=== PATIENT | male | born 1965 | race African-American/Black ===

== ENCOUNTER 2019-11-19 16:59 | Emergency (ER) | payer OTHER ==
[2019-11-19 18:23] LABS: Hemoglobin 7.6 g/dL (14.0-18.0); Mean Corpuscular HGB CONC 37.1 g/dL (32.0-36.0); Mean Corpuscular Hemoglobin 35.8 pg (27.0-31.0); Mean Corpuscular Volume 96.7 fL (78.0-98.0); Mean Platelet Volume 11.4 fL (7.4-10.4); Platelet Count 35 thou/uL (130-400); Red Blood Cell (RBC) Count 2.11 mill/uL (4.70-6.10)
[2019-11-19 19:25] LABS: Reflex for Review?? YES
[2019-11-19 19:30] LABS: Anisocytosis SLIGHT = 6-15 cells (100X) (0-5/hpf); Elliptocytes SLIGHT = 2-5 cells (100X) (0-1/hpf); Eosinophils 1 % (0-10); Hypochromia SLIGHT = 6-15 cells (100X) (0-5/hpf); Lymphocytes 64 % (21-51); MDiff Complete? YES; Metamyelocyte 1 % (0-0); Microcytosis SLIGHT = 6-15 cells (100X) (0-5/hpf); Monocytes 18 % (0-10); Neutrophil 14 % (42-75); Nucleated RBC 3 % (0); Platelet Morphology Comment Appears Decreased; Polychromasia SLIGHT = 2-3 cells (100X) (0-2/hpf); Reactive Lymphocytes 2 % (0-10); Schistocytes SLIGHT = 2-5 cells (100X) (0-1/hpf); Tear Drops SLIGHT = 2-5 cells (100X) (0-1/hpf)
--- NOTE | 2019-11-19 20:11 | RAD ---
ONE VIEW CHEST: History: Chest pain. Patient has history of leukemia and anemia. Comparison: None. FINDINGS: Cardiac silhouette and pulmonary vasculature are within normal limits. The lungs are clear. Osseous s tructures have a normal appearance. IMPRESSION: No acute cardiopulmonary process. POS: SONI
[2019-11-19 20:12] LABS: ALT (SGPT) 31 U/L (8-55); AST (SGOT) 30 U/L (5-34); Albumin 4.3 g/dL (3.5-5.0); Alkaline Phosphatase 111 U/L (40-110); Anion Gap 12 mmol/L (10-20); BUN (Urea Nitrogen) 16 mg/dL (8.4-25.7); Bilirubin, Total 0.6 mg/dL (0.2-1.2); CK (CPK) 457 U/L (30-200); Calc. Creatinine Clearance 0 mL/min (70-130); Calcium 9.3 mg/dL (7.8-10.44); Carbon Dioxide 23 mmol/L (22-29); Chloride 110 mmol/L (98-107); Estimated GFR-MDRD Greater than 90; Globulin 2.2 g/dL (2.4-3.5); Glucose 100 mg/dL (70-105); Potassium 3.9 mmol/L (3.5-5.1); Protein, Total 6.5 g/dL (6.0-8.3); Sodium 141 mmol/L (136-145)
[2019-11-19 23:05] LABS: Troponin I Less than 0.010 ng/mL (< 0.028)
== END 2019-11-20 02:29 ==
LOC: ERS 16:59
DX: D64.9 Anemia, unspecified (principal); C95.90 Leukemia, unspecified not having achieved remission; R07.9 Chest pain, unspecified; I10 Essential (primary) hypertension; F32.9 Major depressive disorder, single episode, unspecified; Z87.891 Personal history of nicotine dependence; Z79.899 Other long term (current) drug therapy
CPT/HCPCS: 36415; 71045; 80053; 82550; 83880; 84484; 85025; 85060; 86850; 86900; 86901; 93005

== ENCOUNTER 2019-11-28 16:40 | Emergency (ER) | payer OTHER ==
--- NOTE | 2019-11-28 17:23 | RAD ---
XR Chest 1 View Portable HISTORY: Dyspnea COMPARISON: 11/19/2019 FINDINGS: The heart size is normal. The lungs are well expanded without focal areas of consolidation, pneumothorax or pleural effusions. IMPRESSION: No radiographic evidence of acute cardiopulmonary process.
[2019-11-28 17:55] LABS: Hemoglobin 7.1 g/dL (14.0-18.0); Mean Corpuscular HGB CONC 37.5 g/dL (32.0-36.0); Mean Corpuscular Hemoglobin 36.4 pg (27.0-31.0); Mean Platelet Volume 12.4 fL (7.4-10.4); Platelet Count 32 thou/uL (130-400); RBC Distribution Width 20.8 % (11.5-14.5); Red Blood Cell (RBC) Count 1.94 mill/uL (4.70-6.10); White Blood Cell (WBC) Count 0.6 thou/uL (4.8-10.8)
[2019-11-28 18:02] LABS: ALT (SGPT) 32 U/L (8-55); AST (SGOT) 34 U/L (5-34); Albumin 4.3 g/dL (3.5-5.0); Alkaline Phosphatase 109 U/L (40-110); Anion Gap 12 mmol/L (10-20); BUN (Urea Nitrogen) 19 mg/dL (8.4-25.7); Bilirubin, Total 0.5 mg/dL (0.2-1.2); Calc. Creatinine Clearance 0 mL/min (70-130); Calcium 8.9 mg/dL (7.8-10.44); Carbon Dioxide 21 mmol/L (22-29); Chloride 112 mmol/L (98-107); Estimated GFR-MDRD 77; Globulin 2.3 g/dL (2.4-3.5); Glucose 89 mg/dL (70-105); Potassium 4.3 mmol/L (3.5-5.1); Protein, Total 6.6 g/dL (6.0-8.3); Sodium 141 mmol/L (136-145)
[2019-11-28 18:37] LABS: Anisocytosis MODERATE=16-30 cells (100X) (0-5/hpf); Band 2 % (5-11); Large Platelets SLIGHT; Lymphocytes 80 % (21-51); MDiff Complete? YES; Monocytes 2 % (0-10); Neutrophil 6 % (42-75); Platelet Morphology Comment Appears Decreased; Polychromasia MODERATE = 3-4 cells (100X) (0-2/hpf); Reactive Lymphocytes 10 % (0-10)
== END 2019-11-28 21:00 ==
LOC: ERS 16:40
DX: D64.9 Anemia, unspecified (principal); I10 Essential (primary) hypertension; F32.9 Major depressive disorder, single episode, unspecified; Z87.891 Personal history of nicotine dependence; Z79.899 Other long term (current) drug therapy
CPT/HCPCS: 36415; 71045; 80053; 84484; 85025; 86850; 86900; 86901; 93005

== ENCOUNTER 2019-12-07 15:23 | Inpatient (IN) | payer OTHER ==
[2019-12-07] MEDS ORDERED: Cefepime 2 GM VIAL ONE (16:09)
--- NOTE | 2019-12-07 16:23 | RAD ---
Portable chest: HISTORY: Fever and tachycardia. COMPARISON: 11/28/2019 FINDINGS: Lung grijalva are clear. Heart and mediastinum appear unremarkable. Vascularity is normal. Visualized osseous structures unremarkable. IMPRESSION: No acute finding
[2019-12-07 16:34] LABS: Hemoglobin 6.1 g/dL (14.0-18.0); Mean Corpuscular HGB CONC 36.5 g/dL (32.0-36.0); Mean Corpuscular Hemoglobin 35.9 pg (27.0-31.0); Mean Corpuscular Volume 98.6 fL (78.0-98.0); Mean Platelet Volume 13.3 fL (7.4-10.4); Platelet Count 21 thou/uL (130-400); RBC Distribution Width 20.9 % (11.5-14.5); White Blood Cell (WBC) Count 0.5 thou/uL (4.8-10.8)
[2019-12-07] MEDS ORDERED: Vancomycin 1.5 GRAM/300 ML BAG 1.5 GM in Premix Bag 1 BAG IVPB SCH (16:45)
[2019-12-07 16:53] LABS: ALT (SGPT) 29 U/L (8-55); AST (SGOT) 25 U/L (5-34); Albumin 4.1 g/dL (3.5-5.0); Alkaline Phosphatase 108 U/L (40-110); Anion Gap 12 mmol/L (10-20); BUN (Urea Nitrogen) 16 mg/dL (8.4-25.7); Bilirubin, Total 0.6 mg/dL (0.2-1.2); Calc. Creatinine Clearance 0 mL/min (70-130); Calcium 8.6 mg/dL (7.8-10.44); Carbon Dioxide 22 mmol/L (22-29); Chloride 105 mmol/L (98-107); Estimated GFR-MDRD 79; Globulin 2.1 g/dL (2.4-3.5); Glucose 100 mg/dL (70-105); Potassium 3.9 mmol/L (3.5-5.1); Protein, Total 6.2 g/dL (6.0-8.3); Sodium 135 mmol/L (136-145)
[2019-12-07] MEDS ORDERED: Acetaminophen 500 MG TAB ONE (17:12)
[2019-12-07 17:38] LABS: Bilirubin Negative (Negative); Blood, Urine Negative (Negative); Clarity Clear (Clear); Glucose, Urine (Dipstick) Normal (Negative); Leukocyte Negative Leu/uL (Negative); Nitrite Negative (Negative); Protein, Urine (Dipstick) Negative (Neg-Trace)
[2019-12-07] MEDS ORDERED: Vancomycin HCl 1 GM in Premix Bag 1 BAG IVPB SCH (21:00)
[2019-12-07] MEDS ORDERED: Famotidine/PF 20 mg/2ml Vial SLOW IVP SCH (22:00)
--- NOTE | 2019-12-07 23:39 | HP ---
CHIEF COMPLAINT: Fever. HISTORY OF PRESENT ILLNESS: Mr. Artis is a 54-year-old male with past medical history of leukemia, on chemotherapy p.o., presents to the emergency room for evaluation of fever, chills, started earlier today. The patient was diagnosed with leukemia 1 year ago. The patient reports having regular chemotherapy treatment with oncology at [facility], stated he saw them yesterday and they recommended that he receive transfusion soon. The patient denies shortness of breath, but he has been having cough. The patient denies being on blood thinners. Workup in the emergency room, the patient was anemic with a hemoglobin of 6.1, MCV is 98, thrombocytopenic with a platelet count 21, leukopenic and neutropenic with a total white count of 0.5. Initial workup including chest x-ray, no acute finding, at the time of this dictation, no obvious source of infection. The patient had septic workup done in the ED. Started on IV antibiotics. The patient is being admitted to the hospital for further management. PAST MEDICAL HISTORY: 1. Acute myeloid leukemia. 2. Hypertension. 3. GERD. 4. Neutropenia. 5. Pancytopenia. 6. Chronic pulmonary embolism. 7. Depression. PAST SURGICAL HISTORY: Sinus surgery. SOCIAL HISTORY: He is a former drug user, abuse marijuana. He is a former tobacco user. Smokes cigarettes. Denies alcohol drinking. FAMILY HISTORY: Reviewed and noncontributory. HOME MEDICATIONS: Please see home medication reconciliation form for updated medications. ALLERGIES: ALLERGIC TO SUDAFED. REVIEW OF SYSTEMS: Review of 14 systems negative except what is mentioned in the history of present illness. PHYSICAL EXAMINATION: GENERAL: The patient is awake, alert, does not appear to be in acute distress. VITAL SIGNS: Blood pressure is 148/90, pulse is 118, respiratory rate is 27, temperature is 99.3, oxygen saturation 98% on room air. HEAD: Normocephalic, atraumatic. NECK: Supple. No JVD. CHEST: Fair bilateral air entry. HEART: S1, S2. Regular. ABDOMEN: Soft, nontender. Bowel sounds present. NEUROLOGIC: Awake, alert, oriented x3. PSYCHIATRIC: Normal mood. EXTREMITIES: No clubbing or cyanosis. MUSCULOSKELETAL: No apparent deformity or tenderness. GENITOURINARY: No suprapubic tenderness. No flank tenderness. LABORATORY DATA: As mentioned above in the history of present illness. IMAGING STUDIES: Chest x-ray, no acute finding. ASSESSMENT: 1. Neutropenic sepsis. 2. Acute myeloid leukemia, on chemotherapy. 3. Gastroesophageal reflux disease. 4. Depression. 5. Anemia. 6. Thrombocytopenia. 7. Leukopenia, neutropenia. PLAN: 1. Admit. 2. Septic workup including blood cultures. 3. IV antibiotics. Continue with cefepime and vancomycin. 4. Consider Oncology consultation and Infectious Disease consultation in a.m. 5. IV fluid hydration. 6. Reconcile home medications. 7. DVT prophylaxis as appropriate. 8. Expected length of stay, 2 midnights or more. Job ID: [id number]
[2019-12-07 23:48] VITALS: BMI 43.4
[2019-12-08] MEDS: Sodium Chloride 0.9% 1,000 ML IV SCH ×3 (00:18→17:54)
[2019-12-08] MEDS: Acetaminophen 325 MG TAB PO PRN ×4 (00:18→19:56)
[2019-12-08] MEDS: Cefepime 2 GM in Sodium Chloride 0.9% 100 ML IVPB SCH ×3 (01:29→17:54)
[2019-12-08 04:05] LABS: Hemoglobin 5.6 g/dL (14.0-18.0); Platelet Count 19 thou/uL (130-400); White Blood Cell (WBC) Count 0.3 thou/uL (4.8-10.8)
[2019-12-08 04:29] LABS: Anion Gap 12 mmol/L (10-20); BUN (Urea Nitrogen) 16 mg/dL (8.4-25.7); Calc. Creatinine Clearance 157 mL/min (70-130); Calcium 8.2 mg/dL (7.8-10.44); Carbon Dioxide 22 mmol/L (22-29); Chloride 107 mmol/L (98-107); Estimated GFR-MDRD 86; Glucose 115 mg/dL (70-105); Sodium 137 mmol/L (136-145)
[2019-12-08 04:50] LABS: Band 8 % (5-11); Elliptocytes SLIGHT = 2-5 cells (100X) (0-1/hpf); Hypochromia SLIGHT = 6-15 cells (100X) (0-5/hpf); Lymphocytes 36 % (21-51); MDiff Complete? YES; Mean Corpuscular Hemoglobin 36.3 pg (27.0-31.0); Mean Corpuscular Volume 98.3 fL (78.0-98.0); Mean Platelet Volume 13.8 fL (7.4-10.4); Monocytes 20 % (0-10); Neutrophil 36 % (42-75); Platelet Morphology Comment Appears Decreased; RBC Distribution Width 20.8 % (11.5-14.5); Red Blood Cell (RBC) Count 1.55 mill/uL (4.70-6.10)
[2019-12-08] MEDS: Famotidine/PF 20 mg/2ml Vial SLOW IVP SCH (09:03)
[2019-12-08] MEDS ORDERED: Ondansetron PF 4 MG/2 ML Vial IVP PRN (09:37)
[2019-12-08] MEDS ORDERED: Ondansetron PF 4 MG/2 ML Vial IVP SCH (09:45)
[2019-12-08] MEDS ORDERED: Bisacodyl 5 MG TAB PO PRN (10:49)
[2019-12-08] MEDS ORDERED: Acetaminophen/Codeine 30-300mg Tablet PO PRN ×2 (10:49→13:24)
[2019-12-08] MEDS ORDERED: diphenhydrAMINE 25 MG CAP PO PRN (10:49)
[2019-12-08] MEDS ORDERED: Ketorolac Tromethamine 30 MG/ML VIAL IVP SCH (11:15)
[2019-12-08] MEDS ORDERED: Guaifenesin DM 100-10/5 ML UDCUP PO PRN (11:18)
--- NOTE | 2019-12-08 11:22 | PDOC.HOSPP ---
- Subjective Encounter Date: 12/08/19 Encounter Time: 11:05 Subjective: f/u for AML, neutropenic fever and sepsis. Receiving Cefepime/Vanc but c/o increased cough and SOB. Received 1u PRBC's this am. - Objective Vital Signs & Weight: Vital Signs (12 hours) Temp Pulse Pulse Resp BP BP BP 12/08/19 08:30 98.2 F 115 H 115 H 24 H 133/86 133/86 12/08/19 08:00 12/08/19 05:35 99.8 F H 105 H 16 135/64 12/08/19 05:06 99.5 F 112 H 20 123/73 12/08/19 04:00 99.5 F 112 H 20 123/73 12/08/19 01:17 102.1 F H 12/07/19 23:47 102.7 F H Pulse Ox 12/08/19 08:30 98 12/08/19 08:00 98 12/08/19 05:35 12/08/19 05:06 12/08/19 04:00 94 L 12/08/19 01:17 12/07/19 23:47 Weight Weight 311 lb 14.4 oz I&O: 12/07/19 12/08/19 12/09/19 06:59 06:59 06:59 Intake Total 0 40 Balance 0 40 Result Diagrams: 12/08/19 03:48 12/08/19 03:48 Additional Labs: Accuchecks 12/07/19 16:00 POC Glucose 118 H Microbiology 12/07/19 16:16 Venous blood - Right Arm Blood Culture - Preliminary Specimen has been received and culture in progress. No Growth to date. 12/07/19 16:07 Venous blood - Right Hand Blood Culture - Preliminary Specimen has been received and culture in progress. No Growth to date. Laboratory Tests 12/07/19 16:08 WBC 0.5 L* Hgb 6.1 L MCV 98.6 H Plt Count 21 L* Radiology Reviewed by me: Yes (PCXR - no acute infiltrates) Hospitalist ROS - Medication Medications: Active Medications Generic Name Dose Route Start Last Admin Trade Name Freq PRN Reason Stop Dose Admin Acetaminophen 650 mg 12/07/19 19:31 12/08/19 05:12 Tylenol PO 650 mg Q4H PRN Administration Fever > 101 Famotidine 20 mg 12/08/19 09:00 12/08/19 09:03 Pepcid SLOW IVP Not Given Q12HR CARTER Cefepime HCl 2 gm/ Sodium 100 mls @ 200 mls/hr 12/08/19 01:00 12/08/19 10:54 Chloride IVPB Not Given 0100,0900,1700 CARTER Sodium Chloride 1,000 mls @ 100 mls/hr 12/07/19 21:45 12/08/19 09:45 Normal Saline 0.9% IV 1,000 mls .Q10H CARTER Administration Vancomycin HCl 2 gm/ Sodium 500 mls @ 250 mls/hr 12/08/19 03:00 12/08/19 02: 16 Chloride IVPB 500 mls 0300,1500 CARTER Administration - Exam General Appearance: awake alert, ill appearing Eye: PERRL, anicteric sclera ENT: normocephalic atraumatic, no oropharyngeal lesions Neck: supple, symmetric, no JVD, no thyromegaly, no carotid bruit Heart: no murmur, no gallops, no rubs, normal peripheral pulses Heart - other findings: tachycardic Respiratory: normal chest expansion, tachypneic Respiratory - other findings: few exp wheezes, coarse sounds Gastrointestinal: soft, non-tender, non-distended, normal bowel sounds, no palpable masses, no hepatomegaly, no splenomegaly, no bruit Extremities: no cyanosis, no clubbing, no edema Skin: normal turgor Neurological: cranial nerve grossly intact, no new deficit Musculoskeletal: normal tone, normal strength, no muscle wasting Psychiatric: normal affect, A&O x 3 Hosp A/P (1) Neutropenic sepsis Code(s): A41.9 - SEPSIS, UNSPECIFIED ORGANISM; D70.9 - NEUTROPENIA, UNSPECIFIED Status: Acute Plan: Continue Cefepime/Vancomycin, neutropenic precautions, check Influenza A/B (2) Pancytopenia due to chemotherapy Code(s): D61.810 - ANTINEOPLASTIC CHEMOTHERAPY INDUCED PANCYTOPENIA Status: Acute Plan: Continue neutropenic precautions, Medical oncology consult, serial CBC (3) Acute respiratory failure with hypoxia Code(s): J96.01 - ACUTE RESPIRATORY FAILURE WITH HYPOXIA Status: Acute Plan: Secondary to #1, Duonebs, O2 PRN, repeat PCXR in am (4) Acute myeloid leukemia Code(s): C92.00 - ACUTE MYELOBLASTIC LEUKEMIA, NOT HAVING ACHIEVED REMISSION Status: Acute Qualifiers: Leukemia Active/Remission status: without remission Qualified Code(s): C92.00 - Acute myeloblastic leukemia, not having achieved remission Plan: Consider transfer to [facility], oncology consulted for recommendations - Plan continue antibiotics, social media job 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
[2019-12-08 11:40] LABS: Hemoglobin 6.8 g/dL (14.0-18.0); Platelet Count 20 thou/uL (130-400)
[2019-12-08] MEDS ORDERED: Oseltamivir 75 MG CAP PO SCH (14:00)
--- NOTE | 2019-12-08 16:53 | CON ---
DATE OF CONSULTATION: 12/08/2019 HISTORY OF PRESENT ILLNESS: Mr. Artis is a 54-year-old male, who is in custodial in [place], who has a diagnosis of AML, he was diagnosed almost one year ago. He has been evaluated for bone marrow transplant at [facility], and currently takes an oral agent in the custodial system. He was at [facility] two days ago, where it was noticed that he was anemic and needed a blood transfusion. They were unable to transfuse him that day because they were full and he was transferred back to the custodial system on Tuesday. Tuesday night, he presented to our emergency room because of shortness of breath and in need of a blood transfusion. He feels slightly better after the blood transfusion, but is still short of breath. He is very fatigued and is having some intermittent chest pain. PAST MEDICAL HISTORY: 1. AML. 2. Hypertension. 3. GERD. 4. Pancytopenia secondary to disease. 5. History of pulmonary embolism. 6. Depression. PAST SURGICAL HISTORY: Sinus surgery. SOCIAL HISTORY: He is a former drug user including marijuana and tobacco. He denies any excessive alcohol. He is currently in custodial in [place]. FAMILY HISTORY: Noncontributory. CURRENT MEDICATIONS: 1. Tylenol No. 3 p.r.n. 2. Tylenol p.r.n. 3. Acyclovir 400 mg p.o. b.i.d. 4. DuoNebs. 5. Allopurinol 300 mg p.o. daily. 6. Dulcolax 5 mg p.o. daily. 7. Cefepime 2 g IV q.8 hours. 8. Benadryl 25 mg p.o. b.i.d. 9. Pepcid 20 mg IV daily. 10. Chlorhexidine rinse. 11. Diflucan 100 mg p.o. daily. 12. Robitussin 15 mL p.o. q.4 hours. 13. Toradol 30 mg IV q.6 hours p.r.n. 14. Morphine 60 mg p.o. b.i.d. 15. Lactulose 15 mL p.o. b.i.d. 16. Zofran 4 mg IV q.6 hours p.r.n. 17. Terazosin 1 mg p.o. at bedtime. 18. Vancomycin 2 g IV q.12 hours. 19. Venlafaxine 75 mg p.o. daily. ALLERGIES: LORATADINE AND SUDAFED. REVIEW OF SYSTEMS: He has had fever in the last 24 hours. Otherwise, review of systems is negative. PHYSICAL EXAMINATION: VITAL SIGNS: Temperature 100.5, pulse 111, respirations 24 to 28, O2 saturation 95% on 2 L nasal cannula, and blood pressure 147/89. GENERAL: He is alert, awake, and oriented x3. Somewhat short of breath and tachypneic. HEENT: Extraocular muscles are intact. Pupils are reactive to light. He has no oral cavity lesions. NECK: Supple without lymphadenopathy. CARDIOVASCULAR: Tachycardic. Regular rhythm. He does have an ecchymoses on his left chest and on his right shoulder. ABDOMEN: Hypoactive bowel sounds. Soft, obese, and nontender. EXTREMITIES: No edema. No cyanosis. LABORATORY DATA: White blood cell count 0.3, hemoglobin 5.6 up to 6.8 after transfusion, platelets 19, neutrophils 36%, monocytes 20%, and lymphocytes 36%. Chest x-ray done in the emergency room shows no acute findings. ASSESSMENT: Mr. Artis is a 54-year-old male with: 1. Acute myeloid leukemia, not in remission. 2. Pancytopenia secondary to the above and treatment. 3. Febrile neutropenia. 4. Symptomatic anemia with chest pain. 5. History of pulmonary embolism. PLAN: 1. He has already been transfused, I would recommend we transfuse him again, we are having trouble with IV access. 2. He is on appropriate IV antibiotics, although I think his vancomycin dose could be decreased. We will discuss with the Pharmacy. 3. I think that he needs to be transferred to [facility] or [facility], acute leukemia would be a vertical transfer. We did not take care of acute leukemia in this facility often enough to give this patient adequate care. I have recommended the complex case manager have him transferred. 4. We will follow peripherally. Job ID: [id number]
[2019-12-08] MEDS: Ketorolac Tromethamine 30 MG/ML VIAL IVP SCH (17:54)
[2019-12-08] MEDS ORDERED: Non-Formulary Item 1 EACH (Lactulose [Lactulose] 15 ML) PO SCH (21:00)
[2019-12-08] MEDS ORDERED: POLYVINYL ALCOHOL EA EYE SCH (21:00)
[2019-12-08] MEDS ORDERED: POVIDONE EA EYE SCH (21:00)
[2019-12-08] MEDS: Terazosin HCl 1 MG CAP PO SCH (21:06)
[2019-12-08] MEDS: Acyclovir 400 mg Tablet PO SCH (21:06)
[2019-12-08] MEDS: Chlorhexidine Gluconate 15 ML UDCUP SSP SCH (21:06)
[2019-12-08] MEDS: Morphine ER 30 MG TAB PO SCH (21:07)
[2019-12-09] MEDS: Artificial Tears 18 DROP/0.9 ML EA EYE SCH ×2 (01:14→08:56)
[2019-12-09] MEDS: Famotidine/PF 20 mg/2ml Vial SLOW IVP SCH ×3 (01:15→21:16)
[2019-12-09] MEDS: Ketorolac Tromethamine 30 MG/ML VIAL IVP SCH ×4 (01:17→18:01)
[2019-12-09] MEDS: Cefepime 2 GM in Sodium Chloride 0.9% 100 ML IVPB SCH ×3 (01:17→18:01)
[2019-12-09] MEDS: Sodium Chloride 0.9% 1,000 ML IV SCH ×2 (05:51→11:27)
[2019-12-09 06:28] LABS: Hemoglobin 6.2 g/dL (14.0-18.0); Mean Corpuscular HGB CONC 36.3 g/dL (32.0-36.0); Mean Corpuscular Hemoglobin 35.6 pg (27.0-31.0); Mean Corpuscular Volume 98.1 fL (78.0-98.0); Mean Platelet Volume 14.5 fL (7.4-10.4); Platelet Count 24 thou/uL (130-400); RBC Distribution Width 21.5 % (11.5-14.5); Red Blood Cell (RBC) Count 1.74 mill/uL (4.70-6.10); White Blood Cell (WBC) Count 0.4 thou/uL (4.8-10.8)
[2019-12-09 06:33] LABS: Band 8 % (5-11); Hypochromia SLIGHT = 6-15 cells (100X) (0-5/hpf); Lymphocytes 76 % (21-51); MDiff Complete? YES; Macrocytosis SLIGHT = 6-15 cells (100X) (0-5/hpf); Monocytes 4 % (0-10); Neutrophil 8 % (42-75); Platelet Morphology Comment Appears Decreased; Reactive Lymphocytes 4 % (0-10)
[2019-12-09] MEDS: Morphine ER 30 MG TAB PO SCH ×2 (08:57→21:14)
[2019-12-09] MEDS: Acyclovir 400 mg Tablet PO SCH ×2 (08:57→21:15)
[2019-12-09] MEDS: Allopurinol 300 MG TAB PO SCH (08:57)
[2019-12-09] MEDS: Chlorhexidine Gluconate 15 ML UDCUP SSP SCH ×2 (08:57→22:15)
[2019-12-09] MEDS: Fluconazole 100 MG TAB PO SCH (08:57)
[2019-12-09] MEDS ORDERED: Oseltamivir 75 MG CAP PO SCH ×2 (10:19→11:00)
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
[2019-12-09 14:34] LABS: Vancomycin, Trough 1.3 ug/mL
[2019-12-09] MEDS: Oseltamivir 75 MG CAP PO SCH (21:14)
[2019-12-10] MEDS: Ketorolac Tromethamine 30 MG/ML VIAL IVP SCH ×4 (00:49→17:48)
[2019-12-10] MEDS: Cefepime 2 GM in Sodium Chloride 0.9% 100 ML IVPB SCH ×3 (00:49→16:40)
[2019-12-10] MEDS: Sodium Chloride 0.9% 1,000 ML IV SCH ×4 (00:49→20:24)
[2019-12-10] MEDS: Artificial Tears 18 DROP/0.9 ML EA EYE SCH ×4 (02:04→20:25)
[2019-12-10] MEDS: Terazosin HCl 1 MG CAP PO SCH ×2 (02:05→20:19)
[2019-12-10 06:04] LABS: Platelet Count 22 thou/uL (130-400); White Blood Cell (WBC) Count 0.4 thou/uL (4.8-10.8)
[2019-12-10 07:25] LABS: Bite Cells SLIGHT = 2-5 cells (100X) (0-1/hpf); Hemoglobin 7.1 g/dL (14.0-18.0); MDiff Complete? YES; Mean Corpuscular HGB CONC 36.6 g/dL (32.0-36.0); Mean Corpuscular Hemoglobin 35.6 pg (27.0-31.0); Mean Corpuscular Volume 97.2 fL (78.0-98.0); Mean Platelet Volume 14.1 fL (7.4-10.4); Platelet Morphology Comment Appears Decreased; Polychromasia SLIGHT = 2-3 cells (100X) (0-2/hpf); RBC Distribution Width 21.3 % (11.5-14.5); Schistocytes SLIGHT = 2-5 cells (100X) (0-1/hpf)
[2019-12-10] MEDS: Acyclovir 400 mg Tablet PO SCH ×2 (08:37→20:19)
[2019-12-10] MEDS: Allopurinol 300 MG TAB PO SCH (08:37)
[2019-12-10] MEDS: Fluconazole 100 MG TAB PO SCH (08:37)
[2019-12-10] MEDS: Oseltamivir 75 MG CAP PO SCH ×2 (08:37→20:20)
[2019-12-10] MEDS: Morphine ER 30 MG TAB PO SCH ×2 (08:37→20:19)
[2019-12-10] MEDS: Famotidine/PF 20 mg/2ml Vial SLOW IVP SCH ×2 (08:41→20:21)
[2019-12-10] MEDS: Chlorhexidine Gluconate 15 ML UDCUP SSP SCH ×2 (09:35→20:21)
--- NOTE | 2019-12-10 09:38 | RAD ---
EXAM: Portable chest PROVIDED CLINICAL HISTORY: Chest pain COMPARISON: 12/07/2019 FINDINGS: Cardiac and mediastinal silhouette is within normal limits. No focal consolidation, pleural fluid or pneumothorax evident. IMPRESSION: No evidence for an acute cardiopulmonary process.
--- NOTE | 2019-12-10 15:50 | PDOC.HOSPP ---
- Subjective Encounter Date: 12/10/19 Encounter Time: 15:45 Subjective: f/u for neutropenic sepsis, Influenza A and AML. States feeling better overall and less coughing. No fever documented in last 24h. - Objective Vital Signs & Weight: Vital Signs (12 hours) Temp Pulse Resp BP BP Pulse Ox 12/10/19 11:28 98.0 F 95 18 135/92 H 96 12/10/19 08:50 89 134/88 12/10/19 08:00 98 12/10/19 07:53 99.5 F 86 16 116/79 98 12/10/19 03:55 99.4 F Weight Weight 311 lb 14.4 oz I&O: 12/09/19 12/10/19 12/11/19 06:59 06:59 06:59 Intake Total 40 3550 480 Output Total 480 1300 1200 Balance -440 2250 -720 Result Diagrams: 12/10/19 05:15 12/08/19 03:48 Additional Labs: Microbiology 12/08/19 12:10 Nasopharyngeal swab Influenza Types A,B Direct EIA - Final 12/07/19 16:16 Venous blood - Right Arm Blood Culture - Preliminary Specimen has been received and culture in progress. No Growth to date. 12/07/19 16:07 Venous blood - Right Hand Blood Culture - Preliminary Specimen has been received and culture in progress. No Growth to date. Laboratory Tests 12/07/19 16:08 WBC 0.5 L* Hgb 6.1 L MCV 98.6 H Plt Count 21 L* Radiology Reviewed by me: Yes (PCXR - no acute process) Hospitalist ROS - Medication Medications: Active Medications Generic Name Dose Route Start Last Admin Trade Name Freq PRN Reason Stop Dose Admin Acetaminophen 650 mg 12/07/19 19:31 12/08/19 19:56 Tylenol PO 650 mg Q4H PRN Administration Fever > 101 Acetaminophen/Codeine Phosphate 1 tab 12/08/19 13:24 12/09/19 02:25 Tylenol #3 PO 1 tab Q4H PRN Administration Pain Acyclovir 400 mg 12/08/19 21:00 12/10/19 08:37 Zovirax PO 400 mg BID CARTER Administration Allopurinol 300 mg 12/09/19 09:00 12/10/19 08:37 Zyloprim PO 300 mg DAILY CARTER Administration Artificial Tears 2 drop 12/08/19 21:00 12/10/19 08:42 Tears Naturale EA EYE Not Given BID CARTER Chlorhexidine Gluconate 15 ml 12/08/19 21:00 12/10/19 09:35 Chlorhexidine Gluconate SSP 15 ml BID CARTER Administration Famotidine 20 mg 12/08/19 09:00 12/10/19 08:41 Pepcid SLOW IVP Not Given Q12HR CARTER Fluconazole 100 mg 12/09/19 09:00 12/10/19 08:37 Diflucan PO 100 mg DAILY CARTER Administration Cefepime HCl 2 gm/ Sodium 100 mls @ 200 mls/hr 12/08/19 01:00 12/10/19 08:42 Chloride IVPB 100 mls 0100,0900,1700 CARTER Administration Sodium Chloride 1,000 mls @ 100 mls/hr 12/07/19 21:45 12/10/19 00:49 Normal Saline 0.9% IV 1,000 mls .Q10H CARTER Administration Vancomycin HCl 2 gm/ Sodium 500 mls @ 250 mls/hr 12/08/19 03:00 12/10/19 03: 17 Chloride IVPB 500 mls 0300,1500 CARTER Administration Ketorolac Tromethamine 30 mg 12/08/19 18:00 12/10/19 12:23 Toradol IVP 12/13/19 18:01 30 mg Q6HR CARTER Administration Lactulose 10 gm 12/08/19 21:00 12/10/19 08:40 Lactulose PO 10 gm BID CARTER Administration Morphine Sulfate 60 mg 12/08/19 21:00 12/10/19 08:37 Ms Contin PO 60 mg BID CARTER Administration Oseltamivir Phosphate 75 mg 12/09/19 21:00 12/10/19 08:37 Tamiflu PO 12/13/19 21:01 75 mg BID CARTER Administration Sodium Chloride 10 ml 12/08/19 21:00 12/10/19 09:36 Flush - Normal Saline IVF Not Given Q12HR CARTER Terazosin HCl 1 mg 12/08/19 21:00 12/10/19 02:05 Hytrin PO Not Given HS CARTER Venlafaxine HCl 75 mg 12/09/19 09:00 12/10/19 08:37 Effexor PO 75 mg DAILY CARTER Administration - Exam General Appearance: NAD, awake alert Eye: PERRL, anicteric sclera ENT: normocephalic atraumatic, no oropharyngeal lesions Neck: supple, symmetric, no JVD, no thyromegaly, no lymphadenopathy Heart: RRR, no murmur, no gallops, no rubs, normal peripheral pulses Respiratory: no rales, normal chest expansion, no tachypnea Respiratory - other findings: Occasional coarse sound o/w clear Gastrointestinal: soft, non-tender, non-distended, normal bowel sounds, no palpable masses Extremities: no cyanosis, no clubbing, no edema Skin: normal turgor, no lesions Neurological: cranial nerve grossly intact, no new deficit Musculoskeletal: normal tone, normal strength, no muscle wasting Psychiatric: normal affect, A&O x 3 Hosp A/P (1) Neutropenic sepsis Code(s): A41.9 - SEPSIS, UNSPECIFIED ORGANISM; D70.9 - NEUTROPENIA, UNSPECIFIED Status: Acute Plan: Improved, continue Cefepime/Vancomycin another 24h (2) Influenza A Code(s): J10.1 - FLU DUE TO OTH IDENT INFLUENZA VIRUS W OTH RESP MANIFEST Status: Acute Plan: Continue Tamiflu 75mg BID (3) Pancytopenia due to chemotherapy Code(s): D61.810 - ANTINEOPLASTIC CHEMOTHERAPY INDUCED PANCYTOPENIA Status: Acute Plan: Stable currently, will arrange for transfer to [facility] to continue chemotherapy (4) Acute respiratory failure with hypoxia Code(s): J96.01 - ACUTE RESPIRATORY FAILURE WITH HYPOXIA Status: Acute Plan: Improved (5) Acute myeloid leukemia Code(s): C92.00 - ACUTE MYELOBLASTIC LEUKEMIA, NOT HAVING ACHIEVED REMISSION Status: Acute Qualifiers: Leukemia Active/Remission status: without remission Qualified Code(s): C92.00 - Acute myeloblastic leukemia, not having achieved remission Plan: See above - 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
[2019-12-11] MEDS: Ketorolac Tromethamine 30 MG/ML VIAL IVP SCH ×3 (00:45→12:30)
[2019-12-11] MEDS: Cefepime 2 GM in Sodium Chloride 0.9% 100 ML IVPB SCH ×2 (00:46→08:24)
[2019-12-11 02:29] LABS: Hemoglobin 7.2 g/dL (14.0-18.0); Mean Corpuscular Hemoglobin 34.7 pg (27.0-31.0); Mean Corpuscular Volume 96.6 fL (78.0-98.0); Mean Platelet Volume 14.7 fL (7.4-10.4); Platelet Count 22 thou/uL (130-400); RBC Distribution Width 20.9 % (11.5-14.5); Red Blood Cell (RBC) Count 2.08 mill/uL (4.70-6.10); White Blood Cell (WBC) Count 0.3 thou/uL (4.8-10.8)
[2019-12-11 02:43] LABS: Anisocytosis SLIGHT = 6-15 cells (100X) (0-5/hpf); MDiff Complete? YES; Platelet Morphology Comment Appears Decreased; Vancomycin, Trough 14.6 ug/mL
[2019-12-11 05:57] VITALS: TEMP 98.9
[2019-12-11 07:49] VITALS: BP 148/89
[2019-12-11] MEDS: Famotidine/PF 20 mg/2ml Vial SLOW IVP SCH (08:24)
[2019-12-11] MEDS: Oseltamivir 75 MG CAP PO SCH (08:24)
[2019-12-11] MEDS: Fluconazole 100 MG TAB PO SCH (08:25)
[2019-12-11] MEDS: Morphine ER 30 MG TAB PO SCH (08:25)
[2019-12-11] MEDS: Acyclovir 400 mg Tablet PO SCH (08:25)
[2019-12-11] MEDS: Allopurinol 300 MG TAB PO SCH (08:25)
[2019-12-11] MEDS: Artificial Tears 18 DROP/0.9 ML EA EYE SCH (08:27)
[2019-12-11] MEDS: Chlorhexidine Gluconate 15 ML UDCUP SSP SCH (08:27)
--- NOTE | 2019-12-11 11:54 | DIS ---
DATE OF ADMISSION: 12/07/2019 DATE OF DISCHARGE: 12/11/2019 DISCHARGE DIAGNOSES: 1. Neutropenic sepsis, resolving. 2. Influenza A, improved. 3. Pancytopenia due to chemotherapy, stable. 4. Acute hypoxic respiratory failure, resolved. 5. 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 CONSULTATIONS: Dr. Nicole Arroyo with Medical Oncology Service. PERTINENT LABORATORY AND X-RAY FINDINGS: Basic metabolic profile within normal limits. Lactic acid level 1.9. LFTs within normal limits. CBC showed a white blood cell count ranging between 0.3 to 0.5, hemoglobin ranged between 5.6 to 7.2, platelet count ranged between 19 to 24. Urinalysis negative. Blood cultures x2 dated 12/07/2019 showed no growth at 48 hours. Urine culture dated 12/07/2019, showed no growth at 48 hours. Influenza A antigen positive 12/08/2019. Portable chest x-ray dated 12/07 and 12/10/2019, showed no acute infiltrate. HOSPITAL COURSE: The patient was initially admitted after presenting with febrile illness in the context of leukemia on current chemotherapy with associated pancytopenia. The patient underwent general sepsis workup including blood and urine cultures showing no growth as stated previously. The patient received neutropenic precautions in addition to IV cefepime and vancomycin empirically. Chest imaging was unremarkable for evidence of pneumonia; however, influenza A antigen was positive by nasal swab, at which point the patient was initiated on Tamiflu and placed on respiratory precautions. The patient continued receiving Tamiflu throughout the hospital course with overall resolution of fever by the time of discharge. Due to the patient's leukemia and inability to obtain the chemotherapeutic agent previously prescribed, the patient was deemed appropriate candidate to transfer to [facility] for ongoing chemotherapy and consideration for further management regarding the AML. The patient did receive 2 units of packed blood cells during the hospital course with overall stable hemoglobin values with monitoring. The patient currently afebrile over the last 48 hours and clinically with stable vital signs. I have examined the patient at the time of discharge and discussed coordination and followup instructions. The patient understands and verbalizes agreement with plan. DISCHARGE MEDICATIONS: 1. Tylenol No. 3 one tablet p.o. q.4 hours p.r.n. pain. 2. Acyclovir 400 mg p.o. b.i.d. 3. Allopurinol 300 mg p.o. daily. 4. Dulcolax 5 mg p.o. daily p.r.n. 5. Chlorhexidine gluconate 15 mL b.i.d. p.r.n. 6. Benadryl 25 mg p.o. b.i.d. p.r.n. 7. Diflucan 100 mg p.o. daily. 8. Gilteritinib fumarate 120 mg p.o. q.a.m. to resume once transferred to [facility]. 9. Lactulose 15 mL p.o. b.i.d. 10. Morphine extended release 60 mg p.o. b.i.d. 11. Omeprazole 20 mg p.o. daily. 12. Prochlorperazine 25 mg p.o. t.i.d. 13. Hytrin 1 mg p.o. at bedtime. 14. Effexor 75 mg p.o. daily. 15. Tamiflu 75 mg p.o. b.i.d. until 12/13/2019. FOLLOWUP: The patient to followup with [facility] on 12/11/2019 in direct transfer. CONDITION ON DISCHARGE: Stable. ACTIVITY: Ad-sanket. DIET: Regular. CODE STATUS: Full. DISPOSITION: Transfer to [facility] 12/11/2019. TIME SPENT: Total time preparing and coordinating discharge, 38 minutes. Job ID: [id number]
[2019-12-11] MEDS ORDERED: Vancomycin 1.5 GRAM/300 ML BAG 1.5 GM in Premix Bag 1 BAG IVPB SCH (12:00)
== END 2019-12-11 17:48 | disposition short-term general hospital (02) | DRG 808 ==
LOC: ERS 15:23 → T4-A 22:22 → ONC 22:27 → T4-A 12-08 15:47
PROVIDERS: ADMIT Internal Medicine; ATTEND Internal Medicine
PROC: 30233N1 Transfusion of Nonautologous Red Blood Cells into Peripheral Vein, Percutaneous Approach (ICD-10-PCS; principal; 2019-12-07)
DX: D61.810 Antineoplastic chemotherapy induced pancytopenia (principal); A41.9 Sepsis, unspecified organism; J96.01 Acute respiratory failure with hypoxia; C92.00 Acute myeloblastic leukemia, not having achieved remission; T45.1X5A Adverse effect of antineoplastic and immunosuppressive drugs, initial encounter; J10.1 Influenza due to other identified influenza virus with other respiratory manifestations; K21.9 Gastro-esophageal reflux disease without esophagitis; F32.9 Major depressive disorder, single episode, unspecified; Z86.711 Personal history of pulmonary embolism; Z87.891 Personal history of nicotine dependence; Z79.899 Other long term (current) drug therapy
CPT/HCPCS: 36415; 36416; 36430; 71045; 80048; 80053; 80202; 81003; 83605; 85007; 85025; 85027; 86850; 86900; 86901; 87040; 87086; 87804; J0692; J1885; J3370; J3490; J7050; P9040; S0028